=== PATIENT | male | born 1950 | race African-American/Black ===

== ENCOUNTER 2018-08-08 20:41 | Emergency (ER) | payer MEDICARE ==
--- NOTE | 2018-08-08 22:52 | ER Document Report ---
HPI - HPI Time Seen by Provider: 08/08/18 22:29 Pain Level: 5 Context: Patient is a 67-year-old frail looking male who presents to the emergency department with a chief complaint of chronic left lower back, left shoulder, and left knee pain. He states that he feels he is having a surge run through his knee area. [facility] not [facility] them for this complaint. He is not seeing physical therapy. He is on tramadol, ibuprofen, and meloxicam at home. He just had his tramadol filled days ago. He denies any IV drug abuse, loss of bladder or bowel function, weakness, numbness, or tingling. - ROS Systems Reviewed and Negative: Yes All other systems reviewed and negative - CONSTITUTIONAL Constitutional: DENIES: Fever, Chills - NEURO Neurology: DENIES: Headache, Weakness - CARDIOVASCULAR Cardiovascular: DENIES: Chest pain - RESPIRATORY Respiratory: DENIES: Trouble Breathing - MUSCULOSKELETAL Musculoskeletal: REPORTS: Extremity pain - left lateral,, Back Pain - Left lower - DERM Skin Color: Normal, Lasana Skin Problems: None Past Medical History - Social History Smoking Status: Current Every Day Smoker Chew tobacco use (# tins/day): No Frequency of alcohol use: None Drug Abuse: None Family History: Reviewed & Not Pertinent Patient has suicidal ideation: No Patient has homicidal ideation: No - Past Medical History Cardiac Medical History: Reports: Hx Hypertension Renal/ Medical History: Reports: Hx Kidney Stones. Denies: Hx Peritoneal Dial ysis Past Surgical History: Reports: Hx Abdominal Surgery - inguinal hernia, Hx Herniorrhaphy - Immunizations Hx Diphtheria, Pertussis, Tetanus Vaccination: Yes Vertical Provider Document - CONSTITUTIONAL Agree With Documented VS: Yes Exam Limitations: No Limitations General Appearance: No Apparent Distress, Thin - INFECTION CONTROL TRAVEL OUTSIDE OF THE [place] IN LAST 30 DAYS: No - HEENT HEENT: Atraumatic, Normocephalic - RESPIRATORY Respiratory: No Respiratory Distress - CARDIOVASCULAR Cardiovascular: Regular Rate, Regular Rhythm Pulses: Normal: Radial - MUSCULOSKELETAL/EXTREMETIES Musculoskeletal/Extremeties: FROM - NEURO Level of Consciousness: Awake, Alert, Appropriate Motor/Sensory: No Motor Deficit, No Sensory Deficit - DERM Integumentary: Warm, Dry Course - Re-evaluation Re-evalutation: Differential diagnosis for back pain includes muscle spasm, muscle strain, slipped disc cauda equina syndrome, vertebral fracture, vertebral tumor, epidural abscess, pyelonephritis, or AAA. Based on history and exam, the most likely etiology of the patient's back pain is chronic back pain. Emergent MRI is not indicated at this time because the patient does not have new weakness, or cauda equina syndrome. Patient does not have bladder or bowel dysfunction. Patient does not have history of IV drug use, therefore, I do not suspect an epidural abscess. Patient does not have recent weight loss or night sweats, and does not have a known history of cancer. 08/08/18 23:00 I reviewed the [place] drug reporting system and the patient was given Tramadol 3 days ago by his primary care at the [facility]. I do not want to give him narcotics at this time, as this may cause him to fall. He will be given Toradol to help with his symptoms, since he has not taken ibuprofen in about 6 hours. 08/08/18 23:45 The patient states he feels about the same. I had a head conversation with the patient about the need for him to see physical therapy and that he needs to take his medication he was prescribed to him by his primary care. He then stated that he is waiting for his referral to go through the [facility] for his physical therapy. I also told him that he is a fall risk, and I would not give him narcotic pain medication. Verbal discharge instructions were given to the patient. They verbalized understanding. They are stable for discharge. - Vital Signs Vital signs: Temp Pulse Resp BP Pulse Ox 98.3 F 67 16 130/84 H 96 08/08/18 21:23 08/08/18 21:23 08/08/18 21:23 08/08/18 21:23 08/08/18 21:23 Discharge - Discharge Clinical Impression: Chronic back pain Qualifiers: Back pain location: low back pain Back pain laterality: left Sciatica presence: with sciatica Sciatica laterality: sciatica of left side Qualified Code(s): M54.42 - Lumbago with sciatica, left side Condition: Stable Disposition: HOME, SELF-CARE Instructions: Low Back Pain ([facility]) Additional Instructions: You were seen today in the emergency department for back, shoulder, and knee pain. You were given a shot of pain medicine. Please follow-up with your primary care provider in regards to this visit. Please try to get physical therapy set up. Please continue to take your Ultram, which was prescribed to you by your primary care provider. If you are unable to walk, have worsening s ymptoms, or have any symptoms that are worrisome to you, please return to the emergency department. Referrals: [facility] [Primary Care Provider] - 08/12/18
[2018-08-08] MEDS ORDERED: KETOROLAC TROMETHAMINE 60 MG/2 ML SDV IM ONE (22:53)
[2018-08-09 00:14] VITALS: BP 155/94
== END 2018-08-09 00:13 | disposition home or self-care (01) ==
LOC: ER 20:41
DX: G89.29 Other chronic pain (principal); M54.42 Lumbago with sciatica, left side; M25.512 Pain in left shoulder; M25.562 Pain in left knee; Z79.1 Long term (current) use of non-steroidal anti-inflammatories (NSAID); F17.200 Nicotine dependence, unspecified, uncomplicated; I10 Essential (primary) hypertension
CPT/HCPCS: 99283; J1885; 96372

== ENCOUNTER → 2018-12-21 | Outpatient (CLI) | payer OTHER ==
--- NOTE | 2018-12-22 08:51 | RADIOLOGY REPORT (SQ) ---
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 TECHNIQUE: Blood glucose level was verified. Above dose of FDG was injected intravenously. 2-D seg mented attenuation correction images were obtained from the base of the skull to the midthighs. Nonc ontrast CT images were obtained for attenuation correction and fusion with emission images. CT image s were performed without oral or intravenous contrast and are not sensitive for parenchymal lesions. A series of overlapping emission PET images were obtained. Images reviewed and manipulated at [facility] work station by the radiologist. Images stored on PACS. LIMITATIONS: None. FINDINGS: HEAD AND NECK: No areas of abnormal metabolic activity in the soft tissues of the head and neck. CHEST: 4 x 3.4 cm mass in the left lower lobe axial image 101, has SUV of 3.8 along its anterior half , worrisome for malignancy versus chronic infection. Or precarinal 2.8 x 1.1 cm lymph node is present on axial image 79 with SUV 1.8. Remainder of the lungs exhibit extensive changes of obstructive lung disease with minimal non metabol ic ground-glass opacity in the posterior left upper lobe axial image 83. Prominent airspaces are pre sent along the bilateral lung apices. ABDOMEN AND PELVIS: There is mild thickened of the gastric cardia wall, with mild increased uptake of 2.9 SUV. This is nonspecific, upper GI or endoscopic correlation could be useful for followup. PROXIMAL LOWER EXTREMITIES: No areas of abnormal metabolic activity in the soft tissues of the lower extremities. BONES: No abnormal metabolic activity in the visualized skeleton. ADDITIONAL CT FINDINGS: Obstructive lung disease, lower cervical fusion hardware, diffuse degenerativ e disc changes lumbar spine OTHER: Liver background activity 2.6 SUV. Blood pool background activity 1.6 SUV IMPRESSION: Metabolically active left lower lobe mass worrisome for malignancy. Enlarged precarinal lymph node with metabolic activity just above blood pool. TECHNICAL DOCUMENTATION: JOB ID: [id number] [employer]- All Rights Reserved Reading location - IP/workstation name: [email or web address]
== END ==
LOC: RAD 16:23
PROVIDERS: ATTEND Physician Assistant
DX: R91.8 Other nonspecific abnormal finding of lung field (principal); R59.0 Localized enlarged lymph nodes
CPT/HCPCS: 78815; A9552

== ENCOUNTER 2019-02-18 08:13 | Day surgery (SDC) | payer OTHER ==
[~2019-02-18 08:13] MED LIST: FENTANYL CITRATE INJ/PF 100 MCG/2 ML AMPUL ONE; KETOROLAC TROMETHAMINE 0.45% 4 DROP/0.4 ML DROPERETTE OD PRN; MIDAZOLAM 2 MG/2 ML INJ ONE
[2019-02-18] MEDS: CYCLOPENTOLATE 0.2%/PHENYLEPHRINE 1% OPH SOLN 2 ML OD PRN ×3 (08:37→08:57)
[2019-02-18] MEDS: BESIFLOXACIN HCL 0.6% OPH SUSP 5 ML BOTTLE OD PRN ×4 (08:37→09:34)
[2019-02-18] MEDS: TROPICAMIDE 1% OPH SOLN 3 ML OD PRN ×3 (08:37→08:57)
[2019-02-18] MEDS: TETRACAINE HCL 0.5% OPH SOLN 4 ML OD PRN ×3 (08:38→09:13)
[2019-02-18] MEDS: EPINEPHRINE INJ/PF 1 MG/1 ML AMPULE ONE ×2 (09:17→09:20)
[2019-02-18] MEDS: LIDOCAINE 1% INJ-PF (10 MG/ML) 30 ML SDV ONE ×2 (09:17→09:20)
[2019-02-18] MEDS: CHONDR SU A NA/HYALUR INTRAOC KIT (SURGICARE) ONE ×2 (09:17→09:20)
[2019-02-18] MEDS: DORZOLAMIDE HCL 2%/TIMOLOL MALEAT 0.5% OPH SOLN 10 ML OD PRN ×3 (09:18→09:34)
[2019-02-18] MEDS: TOBRAMYCIN SULFATE/DEXAMETH OPH OINTMENT 3.5 GM ONE ×2 (09:18→09:34)
== END 2019-02-18 10:12 | disposition home or self-care (01) ==
LOC: SC 08:13
PROVIDERS: ATTEND Ophthalmology
DX: H25.11 Age-related nuclear cataract, right eye (principal); H40.1111 Primary open-angle glaucoma, right eye, mild stage; F17.210 Nicotine dependence, cigarettes, uncomplicated; I10 Essential (primary) hypertension; K21.9 Gastro-esophageal reflux disease without esophagitis; Z79.899 Other long term (current) drug therapy
CPT/HCPCS: 0191T; 66984; 142; C1783; J0171; J2250; J3010; J3490; V2632

== ENCOUNTER 2019-03-04 10:11 | Day surgery (SDC) | payer OTHER ==
[~2019-03-04 10:11] MED LIST changes: +BUPIVACAINE HCL 0.75% INJ/PF (7.5 MG/1 ML) 10 ML SDV OS PRN; +CHONDR SU A NA/HYALUR INTRAOC KIT (SURGICARE) ONE; +DORZOLAMIDE HCL 2%/TIMOLOL MALEAT 0.5% OPH SOLN 10 ML OS PRN; +EPINEPHRINE INJ/PF 1 MG/1 ML AMPULE ONE; -KETOROLAC TROMETHAMINE 0.45% 4 DROP/0.4 ML DROPERETTE OD PRN; +KETOROLAC TROMETHAMINE 0.45% 4 DROP/0.4 ML DROPERETTE OS PRN; +LIDOCAINE 1% INJ-PF (10 MG/ML) 30 ML SDV ONE; +LIDOCAINE 4% INJ/PF (40 MG/ML) 5 ML AMPUL OS PRN; +TETRACAINE HCL 0.5% OPH SOLN 0.6 ML DROPERETTE OS PRN; +TOBRAMYCIN SULFATE/DEXAMETH OPH OINTMENT 3.5 GM ONE
[2019-03-04] MEDS: CYCLOPENTOLATE 0.2%/PHENYLEPHRINE 1% OPH SOLN 2 ML OS PRN ×3 (11:01→11:27)
[2019-03-04] MEDS: TROPICAMIDE 1% OPH SOLN 3 ML OS PRN ×3 (11:01→11:27)
[2019-03-04] MEDS: BESIFLOXACIN HCL 0.6% OPH SUSP 5 ML BOTTLE OS PRN ×3 (11:02→11:56)
[2019-03-04] MEDS: TETRACAINE HCL 0.5% OPH SOLN 4 ML OS PRN ×3 (11:03→11:35)
== END 2019-03-04 12:39 | disposition home or self-care (01) ==
LOC: SC 10:11
PROVIDERS: ATTEND Ophthalmology
DX: H25.12 Age-related nuclear cataract, left eye (principal); I10 Essential (primary) hypertension; F17.210 Nicotine dependence, cigarettes, uncomplicated; Z79.899 Other long term (current) drug therapy; Z98.41 Cataract extraction status, right eye; H40.1121 Primary open-angle glaucoma, left eye, mild stage; K21.9 Gastro-esophageal reflux disease without esophagitis
CPT/HCPCS: 0191T; 66984; 140; C1783; J0171; J2250; J3010; J3490; V2632

== ENCOUNTER 2019-07-08 09:41 | Emergency (ER) | payer OTHER, MEDICARE ==
[2019-07-08 11:05] LABS: ABSOLUTE BASOPHILS # (AUTO) 0.1 10^3/uL (0.0-0.2); ABSOLUTE EOSINOPHILS # (AUTO) 0.3 10^3/uL (0.0-0.6); ABSOLUTE LYMPHOCYTES (AUTO) 3.6 10^3/uL (0.5-4.7); ABSOLUTE MONOCYTES (AUTO) 0.7 10^3/uL (0.1-1.4); ABSOLUTE NEUT (AUTO) 6.3 10^3/uL (1.7-8.2); BASOPHILS % (AUTO) 0.6 % (0-2); EOSINOPHILS % (AUTO) 2.6 % (0-6); HEMATOCRIT 38.8 % (37.9-51.0); HEMOGLOBIN 13.3 g/dL (13.5-17.0); LYMPHOCYTES % (AUTO) 32.8 % (13-45); MEAN CORPUSCULAR HEMOGLOBIN 31.9 pg (27.0-33.4); MEAN CORPUSCULAR HGB CONC 34.2 g/dL (32.0-36.0); MEAN CORPUSCULAR VOLUME 93 fl (80-97); MONOCYTES % (AUTO) 6.3 % (3-13); PLATELET COUNT 320 10^3/uL (150-450); RED BLOOD COUNT 4.16 10^6/uL (4.35-5.55); RED CELL DISTRIBUTION WIDTH 13.6 % (11.5-14.0); SEGMENTED NEUTROPHILS % (AUTO) 57.7 % (42-78); TOTAL CELLS COUNTED % (AUTO) 100 %; WHITE BLOOD COUNT 10.9 10^3/uL (4.0-10.5)
[2019-07-08 11:26] LABS: ALBUMIN 4.3 g/dL (3.5-5.0); ALKALINE PHOSPHATASE 70 U/L (38-126); ANION GAP 9 (5-19); ASPARTATE AMINO TRANSFERASE 26 U/L (17-59); BILIRUBIN,DIRECT 0.2 mg/dL (0.0-0.4); BILIRUBIN,TOTAL 0.7 mg/dL (0.2-1.3); BLOOD UREA NITROGEN 17 mg/dL (7-20); CALCIUM 10.2 mg/dL (8.4-10.2); CARBON DIOXIDE 27 mmol/L (22-30); CHLORIDE 103 mmol/L (98-107); CREATINE KINASE 73 U/L (55-170); GLUCOSE 95 mg/dL (75-110); POTASSIUM 4.6 mmol/L (3.6-5.0); TOTAL PROTEIN 7.6 g/dL (6.3-8.2)
--- NOTE | 2019-07-08 11:36 | EKG REPORT ---
SEVERITY:- NORMAL ECG - SINUS RHYTHM : Confirmed by: Jane Solitario MD 08-Jul-2019 11:35:43
[2019-07-08 11:38] LABS: CREATINE KINASE MB 0.41 ng/mL (<4.55); TROPONIN I < 0.012 ng/mL
--- NOTE | 2019-07-08 12:04 | RADIOLOGY REPORT (SQ) ---
EXAM DESCRIPTION: CHEST SINGLE VIEW COMPLETED DATE/TIME: 07/08/2019 11:48 am REASON FOR STUDY: bed 16 cp COMPARISON: PET from 12/21/2018. EXAM PARAMETERS: NUMBER OF VIEWS: One view. TECHNIQUE: An AP view of the chest was obtained. RADIATION DOSE: NA LIMITATIONS: None. FINDINGS: LUNGS AND PLEURA: The dense opacity in the medial inferior left hemithorax could represent the hypermetabolic mass described on the correlative PET. The left hemidiaphragm is elevated. The left lateral costophrenic sulcus is blunted. There is no pneumothorax. MEDIASTINUM AND HILAR STRUCTURES: No mediastinal or hilar contour abnormality. HEART AND VASCULAR STRUCTURES: The cardiac silhouette and pulmonary vasculature are within normal morales its. BONES: No acute findings. HARDWARE: ACDF. OTHER: No other finding. IMPRESSION: The dense opacity in the medial left hemithorax could represent the hypermetabolic mass described on the correlative PET. TECHNICAL DOCUMENTATION: JOB ID: [id number] [employer]- All Rights Reserved Reading location - IP/workstation name: [email or web address]
[2019-07-08] MEDS ORDERED: LIDOCAINE 2% VISCOUS SOLN 15 ML UDCUP PO ONE (13:00)
[2019-07-08] MEDS ORDERED: CYCLOBENZAPRINE HCL 10 MG TABLET PO ONE (13:00)
[2019-07-08] MEDS ORDERED: LIDOCAINE 5% (700 MG) TRANSDERMAL ADH..PATCH TP ONE (13:00)
[2019-07-08] MEDS ORDERED: MAG HYDROX/AL HYDROX/SIMETH SUSP 30 ML UDCUP PO ONE (13:00)
[2019-07-08] MEDS ORDERED: KETOROLAC TROMETHAMINE INJ/PF 30 MG/1 ML SDV IV ONE (13:00)
[2019-07-08] MEDS ORDERED: METOCLOPRAMIDE HCL ORAL SOLN 10 MG/10 ML UDCUP PO ONE (13:00)
--- NOTE | 2019-07-08 13:07 | ER Document Report ---
ED General - General Chief Complaint: Hip Pain Stated Complaint: PAIN HIP DOWN/LEFT CHEST PAIN Time Seen by Provider: 07/08/19 12:16 Primary Care Provider: MEE KESSLER PA [Primary Care Provider] - Follow up as needed Notes: Patient is a 68-year-old male with a history of hypertension and left-sided lung cancer who presents to the emergency department with a chief complaint of left chest wall pain and right hip pain. Patient reports on May 26 he had his left lower lobe removed due to cancer of the lung. Patient reports he is not currently undergoing any chemo or radiation and does have a follow-up with a oncologist next week. Patient reports surgery went as planned without complications. Patient reports he has had some left lateral lung pain and left chest wall pain since then. He states he did follow-up with his surgeon at the end of May who told him it was related to the nerves and muscles, he was told to take ibuprofen. Patient reports the pain is been intermittent for the past 2 weeks and is worse when he attempts to lay on his left side, when he takes a deep breath or touches his left chest wall. Patient reports he is attempted to use Tylenol, Aleve and ibuprofen which does help briefly but after about 2 hours the pain returns. Patient also complains of right hip pain. Jonathan ortega denies injury or fall. Patient reports this is been intermittent for the past 2 to 3 weeks. Patient reports [facility] for the same type of hip pain. Patient reports he feels like it starts in his right lower back and radiates down his leg. Patient reports this feels like a tingling and burning sensation. Patient reports heating pads do temporarily help. TRAVEL OUTSIDE OF THE [place] IN LAST 30 DAYS: No - Related Data Allergies/Adverse Reactions: No Known Allergies Allergy (Verified 10/24/15 15:53) Past Medical History - General Information source: Patient - Social History Smoking Status: Unknown if Ever Smoked Lives with: Family Family History: Reviewed & Not Pertinent Patient has suicidal ideation: No Patient has homicidal ideation: No - Past Medical History Cardiac Medical History: Reports: Hx Hypertension - MEDICATED Denies: Hx Heart Attack Pulmonary Medical History: Reports: None Denies: Hx Asthma EENT Medical History: Reports: None Neurological Medical History: Reports: None. Denies: Hx Cerebrovascular Accident, Hx Seizures Endocrine Medical History: Reports: None Renal/ Medical History: Reports: Hx Kidney Stones. Denies: Hx Peritoneal Dialysis Malignancy Medical History: Reports Hx Lung Cancer GI Medical History: Reports: None. Denies: Hx Hepatitis, Hx Hiatal Hernia, Hx Ulcer Musculoskeletal Medical History: Reports None Skin Medical History: Reports None - Or any anticonvulsant which he does Psychiatric Medical History: Reports: None Traumatic Medical History: Reports: None Infectious Medical History: Reports: None. Denies: Hx Hepatitis Past Surgical History: Reports: Hx Abdominal Surgery - inguinal hernia, Hx Herniorrhaphy. Denies: Hx Open Heart Surgery, Hx Pacemaker - Immunizations Hx Diphtheria, Pertussis, Tetanus Vaccination: Yes Review of Systems - Review of Systems Constitutional: No symptoms reported EENT: No symptoms reported Cardiovascular: See HPI Respiratory: No symptoms reported Gastrointestinal: See HPI Genitourinary: No symptoms reported Male Genitourinary: No symptoms reported Musculoskeletal: See HPI Skin: No symptoms reported Hematologic/Lymphatic: No symptoms reported Neurological/Psychological: No symptoms reported Physical Exam - Vital signs Vitals: Temp Pulse Resp BP Pulse Ox 97.8 F 73 20 138/80 H 99 07/08/19 10:01 07/08/19 10:01 07/08/19 10:01 07/08/19 10:01 07/08/19 10:01 Interpretation: Normal - Notes Notes: GENERAL: Well-appearing, well-nourished and in no acute distress. HEAD: Atraumatic, normocephalic. EYES: Pupils equal round and reactive to light, extraocular movements intact, sclera anicteric, conjunctiva are normal. ENT: Nares patent, oropharynx clear without exudates. Moist mucous membranes. NECK: Normal range of motion, supple without lymphadenopathy or JVD. LUNGS: Breath sounds clear to auscultation bilaterally and equal. No wheezes rales or rhonchi. Patient has a healed scar noted to the left lateral lung, no dehiscence, no erythema, no edema or ecchymosis. Patient does have tenderness with palpation around the scar. HEART: Regular rate and rhythm without murmurs, rubs or gallops. Patient does have reproducible left chest wall tenderness with palpation. ABDOMEN: Soft, nontender, normoactive bowel sounds. No guarding, no rebound. No masses appreciated. BACK: No cervical, thoracic, lumbar midline tenderness. No saddle anesthesia, normal distal neurovascular exam. GENITOURINARY: Deferred. EXTREMITIES: Normal range of motion, no pitting or edema. No clubbing or cyanosis. Patient has tenderness to the right lower back and right hip. Patient has full flexion-extension of the right hip and right knee. NEUROLOGICAL: Cranial nerves II through XII grossly intact. Normal speech, normal gait. PSYCH: Normal mood, normal affect. SKIN: Warm, Dry, normal turgor, no rashes or lesions noted. Course - Re-evaluation Re-evalutation: 07/08/19 13:08 Based upon the patient's physical examination his symptoms of right hip pain appear to be consistent with sciatica. We will treat this appropriately. Patient also has significant left chest wall tenderness. This is most likely musculoskeletal but will repeat a troponin. Patient giving a muscle relaxers and anti-inflammatories. Patient EKG unremarkable. Patient is in a sinus rhythm with a heart rate of 77 on the monitor, oxygen level 99% and blood pressure 147/89. HEART SCORE: 3. 07/08/19 14:57 Upon reevaluation patient is laying on his left side. Patient reports he still continues to have right hip pain. Right hip x-ray was unremarkable. Patient continues to present with sciatica type symptoms. Will treat with anti- inflammatories, muscle relaxers as this will also help with his left chest wall pain. I do believe this is most likely musculoskeletal as he has had 2 negative troponins and this is worse with movement, palpitation of the left chest wall and when he lays on his left side. - Vital Signs Vital signs: Temp Pulse Resp BP Pulse Ox 97.8 F 73 13 162/98 H 100 07/08/19 10:01 07/08/19 10:01 07/08/19 12:06 07/08/19 12:06 07/08/19 12:06 - Laboratory Result Diagrams: 07/08/19 10:40 07/08/19 10:40 Laboratory results interpreted by me: 07/08/19 10:40 WBC 10.9 H RBC 4.16 L Hgb 13.3 L - Diagnostic Test Radiology reviewed: Reports reviewed Radiology results interpreted by me: 07/08/19 13:07 Chest X-Ray 07/08/19 10:41 IMPRESSION: The dense opacity in the medial left hemithorax could represent the hypermetabolic mass described on the correlative PET. 07/08/19 13:40 Chest X-Ray 07/08/19 10:41 IMPRESSION: The dense opacity in the medial left hemithorax could represent the hypermetabolic mass described on the correlative PET. Hip/Pelvis X-Ray 07/08/19 13:03 IMPRESSION: No acute osseous abnormality of the right hip. - EKG Interpretation by Me Additional EKG results interpreted by me: 07/08/19 13:08 Patient is EKG shows sinus rhythm with a heart rate of 75. Patient's OK in terval 140, QT is 388 and QTc is 434. Patient has a normal axis deviation. There is not appear to be any ST segment changes in consecutive leads. There is no old EKG for comparison. Discharge - Discharge Clinical Impression: Left-sided chest wall pain, Right sciatic nerve pain Condition: Stable Disposition: HOME, SELF-CARE Additional Instructions: *Today was seen in the emergency department for left chest wall pain and right hip pain. We have obtained an EKG, basic lab work as well as 2 troponins which is your cardiac enzyme and these were all negative. Your blood work is very reassuring. We did obtain an x-ray of your right hip which did not show any a cute abnormality. Your right hip pain and symptoms are consistent with sciatica. This caused by the irritation of the sciatic nerve. Typically bedrest is needed with anti-inflammatories. I will also place you on a muscle relaxer called Flexeril. These medications may also help with your left chest wall pain. Please follow-up with your oncologist as [facility] Please return to the emergency department if you develop any increasing numbness, localized weakness to the foot or ankle or pain that does not respond with rest and medications. Also return emergency department if you develop chest pain that changes in severity or intensity, fever, cough or any new or worsening symptoms such as shortness of breath. *Do not drive or operate heavy machinery while on the Flexeril as this can make you drowsy and sleepy. Be cautious with the naproxen which is your anti- inflammatory. This can cause GI upset and bleeding. Please make sure you are eating food with this medication. Sciatica Your symptoms suggest "sciatica." The pain of sciatica typically radiates down the leg. Numbness in the foot or calf may also occur. Sciatica is caused by irritation of the sciatic nerve or its branches. The irritation can be due to a herniated disk in the spine, swelling and inflammation in the muscles surrounding the sciatic nerve, or direct injury of the nerve itself. Most cases of sciatica will resolve with medical treatment. Bed rest is usually recommended initially. Surgery is only necessary when the condition will not improve with rest and antiinflammatory medication. Muscle relaxers are often given if muscle soreness is present. A CAT scan of the back may be performed if a herniated disk is suspected. Re-examination is necessary if you develop increasing numbness, localized weakness in the foot or ankle, or if the pain does not respond to rest. Chest Wall Pain Your chest pain has been diagnosed as coming from the chest wall. This is often caused by straining the muscles or joints in the chest during physical activity, direct trauma, coughing, or vigorous vomiting. Persons with arthritis are especially prone to this type of pain, due to inflammation of the cartilage joints near the breast bone. Occasionally, no cause can be found. Rest from strenuous physical activity. This kind of chest pain is usually made worse by movement of the chest. Depending on the symptoms, we may prescribe medicine for pain, muscle relaxation, and antiinflammatory effects. If the pain is new, and seems to be due to muscle strain, cold packs can help. Otherwise, apply gentle warmth to the painful area for 15 minutes every hour or two. You should contact the doctor immediately if things change. Further evaluation is needed if you develop a fever or cough, if the nature of the pain changes, or if you become short of breath. Prescriptions: Cyclobenzaprine HCl [Flexeril 5 mg Tablet] 5 mg PO TID PRN #15 tablet PRN Reason: Lidocaine [Lidoderm 5% (700 mg) Transdermal Patch] 1 patch TP DAILY PRN #15 adh..patch PRN Reason: Naproxen [Naprosyn] 500 mg PO BID #21 tablet Referrals: MEE KESSLER PA [Primary Care Provider] - Follow up as needed
--- NOTE | 2019-07-08 13:36 | RADIOLOGY REPORT (SQ) ---
EXAM DESCRIPTION: HIP RIGHT AP/LATERAL COMPLETED DATE/TIME: 07/08/2019 1:27 pm REASON FOR STUDY: right hip pain COMPARISON: AP and lateral views of the right hip from 08/04/2010. NUMBER OF VIEWS: Two views. TECHNIQUE: AP and lateral views of the right hip were obtained. LIMITATIONS: None. FINDINGS: MINERALIZATION: Normal. RIGHT HIP: No fracture or dislocation. PUBIS AND ISCHIUM: The ilioischial and iliopectineal lines are intact. There is no diastasis of the pubic symphysis. SOFT TISSUES: Pelvic phleboliths. OTHER: No other finding. IMPRESSION: No acute osseous abnormality of the right hip. TECHNICAL DOCUMENTATION: JOB ID: [id number] [employer]- All Rights Reserved Reading location - IP/workstation name: [email or web address]
[2019-07-08 15:39] VITALS: BP 145/89
== END 2019-07-08 15:32 | disposition home or self-care (01) ==
LOC: ER 09:41
DX: M54.31 Sciatica, right side (principal); R07.89 Other chest pain; M25.551 Pain in right hip; I10 Essential (primary) hypertension; Z85.118 Personal history of other malignant neoplasm of bronchus and lung; Z87.442 Personal history of urinary calculi; Z90.2 Acquired absence of lung [part of]
CPT/HCPCS: 93005; 99285; 96374; 36415; 82553; 82550; 85025; 80053; 84484; 71045; 73502; 93010; J3490; J1885

== ENCOUNTER → 2019-07-17 | Outpatient (CLI) | payer OTHER ==
--- NOTE | 2019-07-17 17:49 | RADIOLOGY REPORT (SQ) ---
EXAM DESCRIPTION: MRI LUMBAR SPINE COMBO COMPLETED DATE/TIME: 07/17/2019 10:57 am REASON FOR STUDY: G95.20 UNSPECIFIED CORD COMPRESSION G95.20 UNSPECIFIED CORD COMPRESSION COMPARISON: None. TECHNIQUE: Sagittal and Axial imaging includes T1, T1 post gadolinium, T2, STIR and gradient echo se quences. Coronal T2/HASTE imaging. CONTRAST TYPE AND DOSE: 10 mL Dotarem. RENAL FUNCTION: Not indicated. ACR Type II contrast agent associated with few, if any, unconfounded cases of NSF LIMITATIONS: None. FINDINGS: SEGMENTATION: No transitional anatomy. The lowest well-developed disc space is labeled L5- S1. ALIGNMENT: Anatomic. VERTEBRAE: Intact. No fractures. BONE MARROW: Mixed fatty and sclerotic vertebral body endplate changes at L5-S1 DISC SIGNAL: Diffuse decreased T2 weighted intervertebral disc signal. Disc space loss of height at L5-S1 POSTERIOR ELEMENTS: Generally intact. No pars defect evident. HARDWARE: None in the spine. CORD AND CONUS: Normal in size and signal intensity. Conus at the L1-2 level. SOFT TISSUES: No aortic aneurysm seen. No bulky retroperitoneal adenopathy or mass. No paraspinal mas s or fluid. T11-12: At the upper edge of the field of view. Bulky bilateral facet hypertrophy and mild posterio r disc bulging cause borderline central canal narrowing and mild bilateral foraminal narrowing left g reater than right. T12-L1: No central or foraminal stenosis. Mild bilateral facet hypertrophy. L1-L2: Mild bilateral facet and ligament hypertrophy. No central or foraminal stenosis. L2-L3: Moderate bilateral facet hypertrophy, broad diffuse posterior disc bulging left greater than r ight. Borderline central canal narrowing and mild right foraminal narrowing. Moderate to high-grade left foraminal narrowing with effacement of the fat around the exiting left L2 nerve root on axial T 2 images 9 through 11, and sagittal T2 image 12. L3-L4: Broad diffuse posterior disc bulging, moderate bilateral facet and ligament hypertrophy cause [id number] central canal narrowing and flattening of the thecal sac at the takeoff of the bilat eral L4 nerve roots in the lateral recess. This is best shown on axial T2 images 17 through 19. Els ewhere at L3-4, moderate bilateral foraminal narrowing is present with partial effacement of fat arou nd the exiting L3 nerve roots. L4-L5: Broad diffuse posterior disc bulging and bulky bilateral facet and ligament hypertrophy cause moderate to high-grade central canal narrowing with effacement of the CSF around the lumbar nerve michel ts, best shown on axial T2 image 24. There is flattening of the thecal sac at the level of the takeo ff of the bilateral proximal L5 nerve roots in the lateral recess. Severe right foraminal narrowing from right foraminal and lateral disc bulge and bony spurring is present, flattening the right L4 ner ve root against the undersurface of the right L4 pedicle. Moderate left foraminal narrowing. L5-S1: Mild diffuse posterior disc bulging, moderate bilateral facet and ligament hypertrophy. Borde rline central canal narrowing. Moderate right and left foraminal narrowing. SACRUM: Visualized upper sacrum intact. ENHANCEMENT: No abnormal vertebral body, conus, or nerve root enhancement. OTHER: No other significant findings. IMPRESSION: Central canal stenosis at L3-4 and L4-5. Severe right L4-5 foraminal stenosis. Multilevel moderate bilateral foraminal narrowing. TECHNICAL DOCUMENTATION: JOB ID: [id number] [employer]- All Rights Reserved Reading location - IP/workstation name: [email or web address]
== END ==
LOC: RAD 10:00
PROVIDERS: ATTEND Internal Medicine Hematology & Oncology
DX: G95.20 Unspecified cord compression (principal)
CPT/HCPCS: 72158; A9576

== ENCOUNTER → 2019-07-21 | Outpatient (CLI) | payer OTHER ==
--- NOTE | 2019-07-22 09:07 | RADIOLOGY REPORT (SQ) ---
EXAM DESCRIPTION: PET CT SKULL/THIGH COMPLETED DATE/TIME: 07/21/2019 8:06 pm REASON FOR STUDY: MALIGNANT NEOPLASM OF LOWER LOBE, LEFT BRONCHUS OR LUNG C34.32 MALIGNANT NEOPLASM OF LOWER LOBE, LEFT BRONCHUS OR PEACE COMPARISON: 12/21/2018 RADIONUCLIDE AND DOSE: 9.45 mCi F18 FDG The route of agent administration: Intravenous FASTING BLOOD SUGAR: 92 mg/dl CONTRAST TYPE AND DOSE: No CT contrast given. TECHNIQUE: Blood glucose level was verified. Above dose of FDG was injected intravenously. 2-D seg mented attenuation correction images were obtained from the base of the skull to the midthighs. Nonc ontrast CT images were obtained for attenuation correction and fusion with emission images. CT image s were performed without oral or intravenous contrast and are not sensitive for parenchymal lesions. A series of overlapping emission PET images were obtained. Images reviewed and manipulated at [facility] work station by the radiologist. Images stored on PACS. LIMITATIONS: None. FINDINGS: HEAD AND NECK: No areas of abnormal metabolic activity in the soft tissues of the head and neck. CHEST: There is been resection of previously-seen left lower lobe mass. Stable appearance of the pre carinal node with activity just above blood pool (max SUV 2.2). No new areas of abnormal FDG uptake within the thorax. Upper lobe predominant panacinar are and paraseptal emphysema. Scattered coronar y atherosclerosis. ABDOMEN AND PELVIS: Background hepatic activity max SUV 3.0. Background blood pool activity max SUV 1.9. No areas of abnormal metabolic activity in the abdomen or pelvis. Expected physiologic activit y is present in the genitourinary system and bowel. Aortoiliac atherosclerosis. Mild dilation of th e abdominal aorta at the level of the diaphragmatic hiatus measuring 3.2 cm. PROXIMAL LOWER EXTREMITIES: No areas of abnormal metabolic activity in the soft tissues of the lower extremities. BONES: No abnormal metabolic activity in the visualized skeleton. ADDITIONAL CT FINDINGS: As above. IMPRESSION: 1. Resection of previously seen left lower lobe mass. Stable appearance of the precari nal lymph node with activity just above blood pool (max SUV 2.2). 2. No evidence of new pathologic FDG uptake throughout the remainder of the exam. TECHNICAL DOCUMENTATION: JOB ID: [id number] [employer]- All Rights Reserved Reading location - IP/workstation name: [email or web address]
== END ==
LOC: RAD 09:29
PROVIDERS: ATTEND Internal Medicine Hematology & Oncology
DX: C34.32 Malignant neoplasm of lower lobe, left bronchus or lung (principal)
CPT/HCPCS: 78815; A9552

== ENCOUNTER → 2019-11-27 | Outpatient (CLI) | payer OTHER | LOC: RAD 08:15 | PROVIDERS: ATTEND Nurse Practitioner Family | DX: C34.32 Malignant neoplasm of lower lobe, left bronchus or lung (principal) | CPT/HCPCS: 82565; 70553; A9576 ==